=== PATIENT | female | born 1995 | race Caucasian/White ===

== ENCOUNTER → 2017-01-13 | Outpatient (CLI) | payer OTHER ==
[2017-01-13 13:56] LABS: Anisocytosis Slight; CH 25.3; CHCM 31.7; HCT 35.3 % (34.0-46.0); HDW 3.18; Hypochromasia Slight; MCHC 31.2 g/dL (31.0-37.0); MCV 80.1 fL (80.0-100.0); Mean Platelet Volume 7.5; RBC 4.41 m/uL (3.80-5.40); RDW 16.7 % (11.5-15.5); WBC 10.2 k/uL (3.8-10.6)
[2017-01-13 14:13] LABS: Non-African American GFR(MDRD) >60 (>60 ml/min/1.73 sqM)
[2017-01-13 19:03] LABS: Treponemal Ab Non-Reactive (Non-Reactive)
== END | disposition home or self-care (01) ==
LOC: LABWHC1 12:03
PROVIDERS: ATTEND Obstetrics & Gynecology
DX: O26.819 Pregnancy related exhaustion and fatigue, unspecified trimester (principal); Z3A.00 Weeks of gestation of pregnancy not specified
CPT/HCPCS: 36415; 82565; 82950; 85027; 86762; 86780; 86850; 86900; 86901; 87340; 87390

== ENCOUNTER → 2017-06-21 | Outpatient (CLI) | payer OTHER ==
[2017-06-21 14:22] LABS: Anisocytosis Slight; Basophils % (A) 1 %; Eosinophils # (A) 0.2 k/uL (0-0.7); Eosinophils % (A) 2 %; HCT 38.7 % (34.0-46.0); HGB 11.9 gm/dL (11.4-16.0); Lymphocytes % (A) 28 %; MCH 24.7 pg (25.0-35.0); MCHC 30.8 g/dL (31.0-37.0); MCV 80.1 fL (80.0-100.0); Mean Platelet Volume 7.5; Microcytosis Slight; Monocytes # (A) 0.4 k/uL (0-1.0); Monocytes % (A) 5 %; Neutrophils # (A) 4.3 k/uL (1.3-7.7); Neutrophils % (A) 62 %; Platelet Count 293 k/uL (150-450); RBC 4.83 m/uL (3.80-5.40); RDW 18.6 % (11.5-15.5); WBC 6.9 k/uL (3.8-10.6)
== END | disposition home or self-care (01) ==
LOC: LABPAT 13:13
PROVIDERS: ATTEND Obstetrics & Gynecology
DX: Z01.812 Encounter for preprocedural laboratory examination (principal)
CPT/HCPCS: 36415; 85025

== ENCOUNTER 2017-06-23 06:30 | Day surgery (SDC) | payer OTHER ==
[2017-06-20 11:08] VITALS: BMI 22.9
--- NOTE | 2017-06-22 16:57 | P.HPOB ---
History of Present Illness H&P Date: 06/22/17 Chief Complaint: Family planning Kaylyn is a 21-year-old female who has completed her family planning and desires permanent sterilization. Risks/benefits/alternatives to a laparoscopic tubal occlusion with Filshie clips has been explained to the patient in detail and all questions are answered for her prior to proceeding to the operating room. Her past medical history is otherwise unremarkable. Past surgical history none. ALLERGIES none. Social history is unremarkable. On physical exam vital signs are stable and afebrile. Heart regular, lungs clear, extremities without pain. Osteopathic exam is unremarkable. Abdomen is soft and nontender with positive bowel sounds noted. Assessment family planning. Plan laps scopic tubal occlusion with Filshie clips Past Medical History Past Medical History: No Reported History Additional Past Medical History / Comment(s): Obstetric history: This is her first and she started care with Dr Cuellar at 28 weeks. O+, abs neg, Rub Imm, RPR NR, Hep B neg, HIV NR. She did have chlamydia but was treated and retest was negative. GBS neg. History of Any Multi-Drug Resistant Organisms: None Reported Past Surgical History: No Surgical Hx Reported Additional Past Surgical History / Comment(s): [place] teeth extraction Past Anesthesia/Blood Transfusion Reactions: No Reported Reaction Smoking Status: Never smoker - Past Family History Mother Family Medical History: No Reported History Medications and Allergies Home Medications Medication Instructions Recorded Confirmed Type No Known Home Medications [No 06/20/17 06/20/17 History Known Home Medications] Allergies Allergy/AdvReac Type Severity Reaction Status Date / Time No Known Allergies Allergy Verified 06/20/17 11:05 Exam Osteopathic Statement: *. No significant issues noted on an osteopathic structural exam other than those noted in the History and Physical/Consult.
[~2017-06-23 06:30] MED LIST: DEXAMETHASONE SOD PHOSPHATE 10 MG/ML 1 ML VIAL IV ONE; LACTATED RINGERS 1,000 ML IV SCH; ONDANSETRON 4 MG/2 ML VIAL IVP ONE; Pre Op ABX Message 1 EACH MISC MISCELLANE ONE
[2017-06-23] MEDS ORDERED: LIDOCAINE 1% 20 ML VIAL (10MG/ML) FOR IV START INTRADERMA ONE (07:07)
[2017-06-23] MEDS ORDERED: MIDAZOLAM 2 MG/2 ML VIAL IV ONE (07:12)
[2017-06-23] MEDS ORDERED: PROPOFOL 10 MG/ML 20 ML VIAL IV ONE (07:38)
[2017-06-23] MEDS ORDERED: VECURONIUM 10 MG VIAL IV ONE (07:38)
[2017-06-23] MEDS ORDERED: LIDOCAINE 1% INJ 10MG/ML (20 ML MDV) ONE (07:38)
[2017-06-23] MEDS ORDERED: MIDAZOLAM 2 MG/2 ML VIAL ONE (07:38)
[2017-06-23] MEDS ORDERED: fentaNYL (PF) 50 MCG/ML 2 ML AMP ONE (07:38)
[2017-06-23] MEDS ORDERED: GLYCOPYRROLATE 0.2 MG/ML 2 ML VIAL ONE (07:38)
[2017-06-23] MEDS ORDERED: NEOSTIGMINE 1 MG/ML 10 ML VIAL ONE (07:38)
[2017-06-23] MEDS ORDERED: SUCCINYLCHOLINE CHLORIDE 100 MG/5 ML SYR IV ONE (07:38)
[2017-06-23] MEDS ORDERED: BUPIVACAINE (PF) 0.25% 30 ML VIAL SQ ONE (07:59)
--- NOTE | 2017-06-23 08:15 | P.OP ---
Date of Procedure: 06/23/17 Preoperative Diagnosis: Family planning Postoperative Diagnosis: Same Procedure(s) Performed: Laparoscopic tubal occlusion with Filshie clips Anesthesia: JOVITA Surgeon: Anthony Cuellar Estimated Blood Loss (ml): 2 Pathology: none sent Condition: stable Disposition: same day Operative Findings: Normal uterus tubes and ovaries Description of Procedure: Patient was taken to the operating suite where a general anesthetic was found be adequate. She was prepped and draped in normal sterile fashion and placed in dorsal lithotomy position. Initially a weighted speculum was inserted into the vagina and the anterior lip of cervix identified grasped with an Allis clamp. Uterus is then sounded to 8 cm and a manipulator was inserted without difficulty. Allis clamp and speculum were then removed and a red rubber catheter was used to drain the bladder of urine. Once this was accomplished gloves were changed and attention was turned to the abdominal portion procedure where 2 mL of quarter percent Marcaine was injected periumbilically. Through this injected anesthetic a 5 mm skin incision was made and through this incision under direct visualization an optical trocar and sleeve were inserted. Was noted that despite going through the peritoneum the sleeve was not quite long enough to extend all the way into the abdomen and therefore was exchanged for a longer port which easily across the peritoneum and allow for much better visualization. Once is accomplished gas allowed to fully insufflate the abdomen and patient was placed in Trendelenburg position and a second port and sleeve were inserted through an 8 no meters skin incision 2 cm above the pubic symphysis in the midline. Once this was accomplished uterus was elevated and observations [place] noted. First the right fallopian tube than the left fallopian tube were identified and grasped with a Filshie clip applicator 2-3 cm from uterine cornu. With no bleeding noted from the mesosalpinx instruments were removed and gas was allowed to expel from the abdomen. Several deep breaths were provided during this process. Once accomplished ports and sleeves were removed and skin incisions were closed subcuticularly with 4-0 Vicryl. The remaining 8 mL of quarter percent Marcaine was injected around these incisions. And then instruments were removed from the vagina. Sponge, lap, needle counts were all correct 2. Patient was then taken to the recovery room in stable and satisfactory condition. Plan - Discharge Summary New Discharge Prescriptions: New Ibuprofen [Motrin] 600 mg PO Q6HR PRN #30 tab PRN Reason: Pain Discharge Medication List Ibuprofen [Motrin] 600 mg PO Q6HR PRN #30 tab 06/23/17 [Rx] Follow up Appointment(s)/Referral(s): Anthony Cuellar DO [Doctor of Osteopathic Medicine] - 2 Weeks Activity/Diet/Wound Care/Special Instructions: No heavy lifting, limit stairs and driving, and pelvic rest. If any high temperatures, heavy bleeding, or severe pain call my office Discharge Disposition: HOME SELF-CARE
[2017-06-23 08:27] VITALS: TEMP 97
[2017-06-23] MEDS ORDERED: MORPHINE SULFATE 4 MG/ML SYRINGE IV ONE (08:54)
[2017-06-23] MEDS ORDERED: HYDROcodone/APAP 5-325MG 1 EACH TAB PO ONE (09:32)
[2017-06-23 09:50] VITALS: RESP 16
[2017-06-23 10:38] VITALS: BP 129/79; PULSE 47
== END 2017-06-23 11:11 | disposition home or self-care (01) ==
LOC: OR 06:30
PROVIDERS: ATTEND Obstetrics & Gynecology
DX: Z30.2 Encounter for sterilization (principal)
CPT/HCPCS: 81025; 58671; J2250; J2270; J1100; J2710; J2405; J2001; J3010; J0330; J2704

== ENCOUNTER → 2018-10-20 | Outpatient (CLI) | payer OTHER ==
--- NOTE | 2018-10-20 15:17 | US ---
EXAMINATION TYPE: US abdomen complete DATE OF EXAM: 10/20/2018 COMPARISON: NONE CLINICAL HISTORY: R10.9 RT SIDED ABD PAIN. Right side pain that radiates to back. NPO. EXAM MEASUREMENTS: Liver Length: 13.9 cm Gallbladder Wall: 0.2 cm CBD: 0.3 cm CHD: 0.3 cm Spleen: 8.8 cm Right Kidney: 9.9 x 4.6 x 5.5 cm Left Kidney: 9.5 x 4.8 x 5.5 cm Suboptimal exam due to overlying bowel gas and patient body habitus Pancreas: Body and tail not visualized. Pancreatic head appears echogenic Liver: Scanned through ribs due to overlying bowel gas. No prominent masses or lesions seen Gallbladder: echogenic focus with shadow = 1.1 cm Evidence for sonographic Rey's sign: neg CBD: wnl CHD: wnl Spleen: wnl Right Kidney: wnl Left Kidney: wnl Upper IVC: Obscured by overlying bowel gas Abd Aorta: Mid portion obscured by overlying bowel gas IMPRESSION: 1. Exam limited due to bowel gas. 2. Cholelithiasis.
--- NOTE | 2018-10-20 16:08 | US ---
EXAMINATION TYPE: US pelvic complete DATE OF EXAM: 10/20/2018 COMPARISON: NONE CLINICAL HISTORY: R10.9 RT SIDED ABD PAIN. Bilateral lower abdomen pain with right side radiating to back. Patient states since she had her son x 1 year ago, menses have been irregular. TECHNIQUE: Transabdominal (TA). Transabdominal sonographic images of the pelvis were acquired. Date of LMP: 09/20/2018, EXAM MEASUREMENTS: Uterus: 8.8 x 5.1 x 4.0 cm Endometrial Stripe: 0.7 cm Right Ovary: 3.5 x 2.2 x 1.6 cm Left Ovary: 3.6 x 2.1 x 2.1 cm 1. Uterus: Anteverted wnl 2. Endometrium: wnl 3. Right Ovary: follicles seen 4. Left Ovary: follicles seen 5. Bilateral Adnexa: wnl 6. Posterior cul-de-sac: no free fluid Cervix- wnl IMPRESSION: 1. Normal pelvic ultrasound.
== END ==
LOC: RADUSWWP 07:20
PROVIDERS: ATTEND Internal Medicine
DX: K80.20 Calculus of gallbladder without cholecystitis without obstruction (principal)
CPT/HCPCS: 76700; 76856